=== PATIENT | female | born 1960 | race Caucasian/White ===

== ENCOUNTER 2023-07-18 22:39 | Inpatient (IN) | payer BC, SELFPAY ==
[2023-07-18 22:45] VITALS: BP 125/84; PULSE 114; RESP 18; O2SAT 97
[2023-07-18 22:47] VITALS: BMI 23.5
[2023-07-19 06:00] VITALS: RESP 16
--- NOTE | 2023-07-19 07:57 | W.PM.NPUH&PS ---
Providers/Chief Complaint Admitting Physician: Jonh Duval MD Primary Care Provider: LIANG ARGUELLO DO Chief Complaint: SI HPI NPU History of Present Illness Mey Quinonez is a 62 year old female who presented to an outside hospital with reports of psychosis. They reports she has a history of prior suicide attempts and was found by the police department multiple times walking the road naked. She made some report that there is some conflict in her marriage and that she might need to get a divorce because he does not love her anymore and something about mafia involvement and cutting off her feet. She admitted to auditory and visual hallucinations. She was placed on a 96-hour hold and transferred to [facility] and admitted to the neuropsychiatric unit for definitive treatment of those issues. She presented today quite psychotic and clearly confused. At times she spoke normally at times she spoke in a whimsical, rhythmic prosody that sounded a lot like the Minion's. There was significant baptism element to her speech. At 1 point we talked about whether she was speaking in tongues and she almost seemed happy that the association was made. She spoke about Jose and wanted to know if this keno writer / runner was one of the good ones. She talked about her that she had at the outside hospital and once again identified that there was some concern her feet would be cut off. She referred to the occult and satanic possibilities as she had bleeding to that being included in the affidavits on the 96-hour hold. Most of what she said made no sense but she jumped back and forth talking about a mariam who had left her before and maybe he could love her again but that her did not love her she was emphatic that she never used any drugs and that drugs were not a part of why she presented like this. Laboratory studies from the outside hospital were consistent with drugs not being involved she did have slightly low sodium potassium TSH and free T4 was elevated. There were no other abnormal laboratory findings and she was COVID-negative. She had no recollection of medications she has had in the past but we did get some reports that she had success with lithium and Xanax previously. We discussed working together to get some of her history and possibly consider something like Abilify or Invega which she reported having never heard of before. She reports that she has had previous hospitalizations but could not illuminate. She denied current medication. She denied current treatment. She was in denial of tobacco alcohol marijuana or any illicit drug use now or ever. She acknowledges being on Neurontin and was agreeable that that should eventually kick in. She also endorses being on Synthroid and says she has been consistent with that. We discussed repeating her laboratory studies to see the status of some of her slightly abnormal laboratory findings. Meds NPU Home Medications Medication Instructions Recorded Confirmed Last Taken Type gabapentin 300 mg capsule 300 mg PO TID 07/19/23 07/19/23 Unknown History levothyroxine 88 mcg tablet 88 mcg PO DAILY 07/19/23 07/19/23 Unknown History Allergies Allergy/AdvReac Type Severity Reaction Status Date / Time No Known Allergies Allergy Unverified 07/18/23 23:14 Mental Status Exam MSE Comments: This is a well-nourished well-developed white female looking older than her stated age in hospital scrubs with limited grooming and adequate eye contact. No abnormal movements except for psychomotor agitation. Intermittently cooperative with exam in mild to moderate distress. Speech was increased rate and normal volume and pressured. Mood not described affect energetic. Thought process linear. Thought content: Patient denied suicidal or homicidal ideation, there were no delusions reported but clear persecutory, paranoid and hyperreligious delusions noted, she endorsed auditory and visual hallucinations. Attention and concentration were limited and memory was unreliable but none were formally tested. She is alert and oriented to person and place. Insight, judgment and impulse control are impaired. Vitals/I&O/Wt Last Vital Signs Pulse 114 H 07/18/23 22:45 Resp 16 07/19/23 06:00 BP 125/84 07/18/23 22:45 Pulse Ox 97 07/18/23 22:45 O2 Del Method Room Air 07/18/23 22:47 Weight last 48 hrs Weight 68.13 kg A&P Assessment and plan (1) Psychosis: (2) Camille: Plan This is a 62-year-old white female with previous history of mood dysregulation with lithium use and suicide attempts and previous psychosis who presents floridly psychotic off of medication on a 96-hour hold. 1. Continue current medication. Will consider Invega or Abilify once we have some collateral information about previous use of these medications. 2. Continue every 15 minute checks for safety. 3. Encourage individual, group and milieu therapies. 4. Will recheck lab studies to identify if any problematic lab abnormalities persist. Involuntary Hold Information 96 Hour Hold: 96 Hour Involuntary Admission: No Attestations NPU Medical Necessity Statement*: Inpatient hospitalization is medically necessary and the clinically appropriate intervention at this time. We will monitor/initiate medications and make changes as indicated. She will be in the hospital for over 2 midnights. Likely length of stay 7 to 10 days. Coding Level of Care Code Acute Code for [facility] Fwd Diagnoses Psychosis F29 Camille F30.9
[2023-07-19] MEDS: gabapentin 300 mg Capsule PO ×2 (08:25→15:05)
[2023-07-19] MEDS: levothyroxine 88 mcg Tablet PO (08:25)
[2023-07-19 14:00] VITALS: BP 144/91; PULSE 103; RESP 15; TEMP 37.1; O2SAT 97
[2023-07-19 19:56] VITALS: BP 146/82; PULSE 95; RESP 18; TEMP 36.8; O2SAT 98
[2023-07-19] MEDS: haloperidol inj 5 mg/mL INJ 1 mL IM (21:38)
[2023-07-19] MEDS: diphenhydrAMINE 50 mg/mL SDV 1mL IM (21:39)
[2023-07-19] MEDS: LORazepam 2 mg/mL INJ 1 mL IM (21:39)
--- NOTE | 2023-07-19 21:41 | PC.NURSE ---
PT HAS BEEN NOTED BY STAFF LOUDLY SINGING, JUMPING UP AND DOWN, CURSING AND YELLING AT STAFF AND OTHER PTs. OTHER PTs COMPLAINING OF NOT BEING ABLE TO SLEEP DUE TO HER YELLING. PT EDUCATED THAT IT WAS AFTER 9PM AND OTHER PTs ARE TRYING TO SLEEP, THAT SHE NEEDS TO CALM DOWN, AND QUIT YELLING SO SHE AND THE OTHER PTs CAN GET SOME SLEEP. PT KEPT YELLING AT THE STAFF, WOULD WALK TO THE CSU DOORS AND KNOCK ON THE GLASS AND YELL FOR THEM TO COME LET HER OUT. COME LET ME OUT. I'M BEING HELD PRISONER IN HERE. 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 HELP ME! PT ADVISED SEVERAL TIMES TO COME AWAY FROM THE CSU DOOR THIS SHIFT. SERVICE STATION MANAGER AND SECURITY NOTIFIED THAT PT IS BEING DISRUPTIVE AND THE POSSIBLE NEED TO MEDICATE SAID PT. SECURITY CAME TO UNIT AND ATTEMPTED TO TALK TO THIS PT AND ADVISE HER THAT SHE NEEDED TO QUIET DOWN AND NOT DISTURB OTHER PTs. PT STARTED YELLING AT SECURITY. SERVICE STATION MANAGER, SECURITY X2, UNIT STAFF X3 ENTERED ROOM AND WAS ABLE TO MEDICATE PT WITHOUT DIFFICULTY. MEDICATIONS GIVEN FOLLOWS: ATIVAN 2MGIM, HALDOL 5MG IM GIVEN IN THE LEFT DELTOID, AND BENADRYL 50MG IM GIVEN IN THE RIGHT DELTOID. PT ASKED IF THE LIGHTS COULD STAY ON AND WAS TOLD THEY COULD.
[2023-07-19 23:21] LABS: Basophils % 0.3 %; Eosinophils # 0.2 10^3/uL (0.0-0.8); Eosinophils % 3.6 %; Hematocrit 36.1 % (36-47); Lymphocytes # 1.2 10^3/uL (0.8-4.8); Lymphocytes % 19.2 %; Mean Corpuscular HGB Conc 33.5 g/dL (30-55); Mean Corpuscular Hemoglobin 29.7 pg (27-33); Mean Corpuscular Volume 88.5 fl (85-98); Monocytes # 0.6 10^3/uL (0.2-0.9); Monocytes % 9.2 %; Neutrophils % 67.5 %; Nucleated Red Blood Cells % 0 %; Platelet Count 307 10^3/cmm (157-399); Red Blood Count 4.08 10^6/uL (3.85-5.65); Red Cell Distribution Width 12.6 % (12.1-15.1); White Blood Count 6.08 10^3/uL (3.29-11.43)
[2023-07-19 23:40] LABS: Alanine Aminotransferase 12 U/L (0-33); Alkaline Phosphatase 65 U/L (35-105); Aspartate Amino Transferase 21 U/L (0-32); Blood Urea Nitrogen 8 mg/dL (8-23); Calcium 9.2 mg/dL (8.5-10.5); Carbon Dioxide 23 mmol/L (22-29); Chloride 99 mmol/L (98-107); Globulin 2.8 g/dL (1.3-4.6); Glucose 91 mg/dL (65-115); Osmolality Calculated 282 mOsm/kg (285-295); Sodium 137 mmol/L (136-145); Total Bilirubin 0.5 mg/dL (0.15-1.2); Total Protein 6.8 g/dL (6.6-8.7)
[2023-07-20 06:00] VITALS: RESP 15
--- NOTE | 2023-07-20 06:22 | PC.NURSE ---
Did not obtain patients vitals due to patients erratic behavior and B52. RR obtained.
--- NOTE | 2023-07-20 07:15 | P.NPUPN_ITS ---
Subjective NPU 2 Subjective: Patient presented today reporting that she is doing okay. We discussed lab work from yesterday which raises concern about her potassium level. We discussed the risk benefits and alternatives of obtaining a hospitalist consult to evaluate and treat any laboratory abnormalities still noted. She denies any side effects of the medication. She was reporting reading the Bible and reporting other hyperreligious topics however staff report some improvement in her overall presentation. Mental Status Exam 2 MSE Comments: This is a well-nourished well-developed white female looking older than her stated age in hospital scrubs with limited grooming and adequate eye contact. No abnormal movements except for psychomotor agitation. More cooperative with exam in mild distress. Speech was increased rate and normal volume and less pressured. Mood described as okay, affect less energetic. Thought process linear. Thought content: Patient denied suicidal or homicidal ideation, there were no delusions reported but clear persecutory, paranoid and hyperreligious delusions noted, she endorsed auditory and visual hallucinations. Attention and concentration were limited and memory was unreliable but none were formally tested. She is alert and oriented to person and place. Insight, judgment and impulse control are impaired. Vitals/I&O/Wt Last Vital Signs Temp 98.2 F 07/19/23 19:56 Pulse 95 07/19/23 19:56 Resp 15 07/20/23 06:00 BP 146/82 07/19/23 19:56 Pulse Ox 98 07/19/23 19:56 O2 Del Method Room Air 07/19/23 19:56 Weight last 48 hrs Weight 68.13 kg Data NPU 07/19/23 22:46 07/19/23 22:46 A&P Assessment and plan (1) Psychosis: (2) Camille: Plan This is a 62-year-old white female with previous history of mood dysregulation with lithium use and suicide attempts and previous psychosis who presents floridly psychotic off of medication on a 96-hour hold. 1. Continue current medication. Initiate Invega 6mg po q daily. 2. Continue every 15 minute checks for safety. 3. Encourage individual, group and milieu therapies. 4. Will recheck lab studies to identify if any problematic lab abnormalities persist. Potassium remains low at 3.0, obtain hospitalist consult and follow recommendations as indicated Involuntary Hold Information 2 96 Hour Hold: 96 Hour Involuntary Admission: No Attestations NPU 2 Medical Necessity Statement*: Inpatient hospitalization is medically necessary and the clinically appropriate intervention at this time. We will monitor/initiate medications and make changes as indicated. Likely length of stay 6-9 days. Coding Level of Care Code Acute Code for [facility] Fwd Diagnoses Psychosis F29 Camille F30.9
[2023-07-20] MEDS: levothyroxine 88 mcg Tablet PO (08:37)
--- NOTE | 2023-07-20 12:29 | P.CONIM_ITS ---
Providers/Reason For Consult 2 Consulting Physician/Specialty*: Dr. Menon/internal medicine Reason for Consult*: Hypokalemia Attending Physician: Jonh Duval MD Primary Care Provider: LIANG ARGUELLO DO History of Present Illness History of Present Illness Mey Quinonez is a 62 year old female admitted to Neuropsych Unit with past medical history of hypothyroidism for martinez. Patient was found to have low potassium levels on BMP which was confirmed again today morning with potassium down to 3 hence internal medicine was consulted. As per the nurse patient has not had any episodes of vomiting or diarrhea. Patient also confirms that she has not had any fluids for diarrhea. Medical reconciliation done. Patient only on oral gabapentin 303 times a day and oral levothyroxine. Patient herself is a poor historian and during interview is only concentrating on talking about god and how she would want to go back to [employer] to start playing again. Review of Systems 2 General: Reports: ROS unobtainable due to mental status Medications/Allergies Home Medications Medication Instructions Recorded Confirmed Last Taken Type gabapentin 300 mg capsule 300 mg PO TID 07/19/23 07/19/23 Unknown History levothyroxine 88 mcg tablet 88 mcg PO DAILY 07/19/23 07/19/23 Unknown History Allergies Allergy/AdvReac Type Severity Reaction Status Date / Time No Known Allergies Allergy Unverified 07/18/23 23:14 Current Medications Generic Name Dose Route Start Last Admin Trade Name Freq PRN Reason Stop Dose Admin Diphenhydramine HCl 50 mg 07/18/23 22:44 07/19/23 21:39 Diphenhydramine 50 Mg/Ml Sdv 1ml IM 50 mg Q4H PRN Administration Severe Aggression Gabapentin 300 mg 07/19/23 09:00 07/20/23 08:39 Gabapentin 300 Mg Capsule PO Not Given TID ELEAZAR Haloperidol Lactate 5 mg 07/18/23 22:44 07/19/23 21:38 Haloperidol Inj 5 Mg/Ml Inj 1 Ml IM 5 mg Q4H PRN Administration Severe Aggression Levothyroxine Sodium 88 mcg 07/19/23 09:00 07/20/23 08:37 Levothyroxine 88 Mcg Tablet PO 88 mcg DAILY ELEAZAR Administration Lorazepam 2 mg 07/19/23 06:29 07/19/23 21:39 Lorazepam 2 Mg/Ml Inj 1 Ml IM 2 mg Q4H PRN Administration Severe Aggression PFSH Acute 2 PFSH: Medical History (Updated 07/20/23 @ 14:02 by Catalino Menon MD) Hypothyroidism Vitals/I&O/Wt Last Vital Signs Temp 98.2 F 07/19/23 19:56 Pulse 95 07/19/23 19:56 Resp 15 07/20/23 06:00 BP 146/82 07/19/23 19:56 Pulse Ox 98 07/19/23 19:56 O2 Del Method Room Air 07/19/23 19:56 Weight last 48 hrs Weight 68.13 kg Physical Exam 2 Narrative: General: No acute distress, AO x3 HEENT: PERRLA, pupils bilaterally equal and reactive Chest: Normal vesicular breath sounds, no added sounds, equal good air entry bilaterally CVS: S1-S2 regular, no murmurs, no tachycardia, no gallops, no rubs Abdomen: Soft, nontender, no organomegaly, bowel sounds present Neuro: No focal deficits, no facial deformity, AO x3, power 5/5 in all limbs Data 07/19/23 22:46 07/19/23 22:46 A&P Assessment and plan (1) Hypothyroidism: Past history. Check TSH, free T3 and T4. Continue home dose of levothyroxine. Will redose as per results. (2) Martinez: As per primary team. (3) Psychosis: (4) Hypokalemia: Denies any diarrhea or vomiting. Denies any muscle cramps. Replete potassium with 80 mEq oral. Check magnesium. Repeat CMP in AM. Plan Check A1c, lipid panel, thyroid profile, vitamin B12 and iron panel. Thank you for involving us in care of Ms. Quinonez. Please call back with any questions. Care discussed in detail with patient's RN. Consult Attestations 2 Medical Necessity Statement: As per primary team from [facility] Diagnoses Hypothyroidism E03.9 Martinez F30.9 Psychosis F29 Hypokalemia E87.6
[2023-07-20] MEDS: paliperidone ER 6 mg Tablet PO (12:39)
[2023-07-20 13:20] LABS: Iron 35 ug/dL (37-145); Percent Saturation 15.3 % (20-50); Thyroid Stimulating Hormone 0.15 uIU/mL (0.27-4.20); Total Iron Binding Capacity 228 mcg/dl; Unsaturated Iron Binding 193 ug/dL (112-347); Vitamin B12 483 pg/mL (232-1245)
[2023-07-20] MEDS: potassium chloride ER 20 mEq Tablet 80 MEQ PO (13:48)
[2023-07-20 14:00] VITALS: BP 135/89; PULSE 111; RESP 13; TEMP 36.8; O2SAT 94
[2023-07-20] MEDS: gabapentin 300 mg Capsule PO (14:26)
[2023-07-20 14:43] LABS: Free T4 Free Thyroxine 1.65 ng/dL (0.82-1.77); T3 Free 2.4 PG/ML (2.0-4.4)
[2023-07-20] MEDS: OLANZapine 5 mg ODT PO (19:24)
[2023-07-20] MEDS: acetaminophen 325 mg Tablet 650 MG PO (19:24)
--- NOTE | 2023-07-20 19:27 | PC.NURSE ---
Pt refused scheduled Gabapentin claiming it was witchcraft and she wanted to stay away from it.
[2023-07-20 19:50] VITALS: BP 108/73; PULSE 102; RESP 20; O2SAT 98
[2023-07-21] MEDS: hyDROXYzine 25 mg Capsule 50 MG PO ×2 (05:36→20:00)
[2023-07-21] MEDS: acetaminophen 325 mg Tablet 650 MG PO (05:42)
--- NOTE | 2023-07-21 07:55 | PC.NURSE ---
Patient sobbing loudly this morning. When this nurse asked her what was wrong she asked, what's wrong?! What's wrong?! Am I doing something wrong? This RN assured her she wasn't doing anything wrong and that I was just concerned because she was crying. She made several garbled statements that included something about her parents' baby having problems, God being the only person that could take care of her, and that she thought she might need 911. She then asked for some secure. When asked what secure was, she threw her hands up in the air and made several incomprehensible statements and noises, appearing irritated. She then said something about toothpaste being on her shirt and it being better than [place] grease. This RN reassured her we would do everything we could to help her and to let us know if we could help her. She denied hi and avh. When asked if she wanted to hurt herself she replied, no! I want to help myself!
[2023-07-21] MEDS: paliperidone ER 6 mg Tablet PO (08:26)
[2023-07-21] MEDS: ibuprofen 600 mg Tablet PO ×2 (08:26→18:35)
[2023-07-21] MEDS: gabapentin 300 mg Capsule PO (08:26)
[2023-07-21] MEDS: levothyroxine 88 mcg Tablet PO (08:26)
[2023-07-21 09:42] LABS: Chol HDL Ratio 3.42 mg/dL (0.0-4.40); Cholesterol 188 mg/dL (0-200); HDL Cholesterol 55 mg/dL (60-100); LDL Cholesterol Calculated 120 mg/dL (50-129); Triglycerides 64 mg/dL (0-150); VLDL Cholestrol Calculation 13 mg/dL (0-30)
[2023-07-21 09:43] LABS: Alanine Aminotransferase 16 U/L (0-33); Alkaline Phosphatase 62 U/L (35-105); Anion Gap 12.5 (5-19); Aspartate Amino Transferase 22 U/L (0-32); Blood Urea Nitrogen 9 mg/dL (8-23); Calcium 9.2 mg/dL (8.5-10.5); Carbon Dioxide 28 mmol/L (22-29); Chloride 102 mmol/L (98-107); Globulin 2.8 g/dL (1.3-4.6); Glomerular Filtration Rate 84.8 mL/min (90-130); Glucose 144 mg/dL (65-115); Osmolality Calculated 289 mOsm/kg (285-295); Potassium 3.5 mmol/L (3.5-5.1); Sodium 139 mmol/L (136-145); Total Bilirubin 0.5 mg/dL (0.15-1.2); Total Protein 6.8 g/dL (6.6-8.7)
[2023-07-21 10:15] LABS: Folate Level > 20.0 ng/mL (4.8-37.3)
--- NOTE | 2023-07-21 12:51 | PM.MISC ---
Miscellaneous Note Purpose of Documentation: Follow-up on lab work Note: Labs reviewed. Potassium seems to have improved to 3.5. Magnesium seems to be running normal off to today. Appreciate B12, TSH, free T3 and free T4, folate levels. Lipid panel appreciated. Will replete 40 mg of oral potassium more. Medicine will sign off. Please call back with any questions.
[2023-07-21] MEDS: potassium chloride ER 20 mEq Tablet 40 MEQ PO (13:18)
--- NOTE | 2023-07-21 13:22 | PC.NURSE ---
Patient making noises as if she were crying, but no tears present. When this nurse asked her what she was upset about she immediately stopped crying and made some strange noises and said a few unintelligible words. This nurse asked her to repeat herself, as I didn't understand what she said. She replied, huh? what? huh? in a mocking tone and rolled her eyes. She then said to go ask someone who knows what's wrong. This RN asked her if she would like to take the potassium tablets the doctor had prescribed her. In response to this, she rolled up her sleeve, showed this RN her tattoo of a dove, and rambled off something unintelligible about the Bible and Vicente. She did take the potassium willingly, but then later came to the nurses' station and asked if anyone was going to take her to the hospital for back pain and then walked away.
[2023-07-21 13:34] LABS: Estmated Average Glucose 94; Hemoglobin A1C 4.9 % (4.0-6.0)
--- NOTE | 2023-07-21 13:46 | P.NPUPN_ITS ---
Subjective NPU 2 Subjective: Patient presented today reporting that she is feeling better but continued to be quite religiously preoccupied per staff reports and direct observation. She was either lying down or reading the Bible. All questions were answered with some roman catholic spin. She continued to report things based on whether she was thinking the other participant was worthy from a right to standpoint to be apart of the roman catholic dialogue. She also was often heard singing hymns in her room. She denied any side effects to the medication. Mental Status Exam 2 MSE Comments: This is a well-nourished well-developed white female looking older than her stated age in hospital scrubs with limited grooming and adequate eye contact. No abnormal movements except for psychomotor agitation. More cooperative with exam in mild distress. Speech was increased rate and normal volume and less pressured. Mood described as okay, affect less energetic. Thought process linear. Thought content: Patient denied suicidal or homicidal ideation, there were no delusions reported but clear persecutory, paranoid and hyperreligious delusions noted, she endorsed auditory and visual hallucinations. Attention and concentration were limited and memory was unreliable but none were formally tested. She is alert and oriented to person and place. Insight, judgment and impulse control are impaired. Vitals/I&O/Wt Last Vital Signs Temp 98.2 F 07/20/23 14:00 Pulse 102 H 07/20/23 19:50 Resp 20 H 07/20/23 19:50 BP 108/73 07/20/23 19:50 Pulse Ox 98 07/20/23 19:50 O2 Del Method Room Air 07/20/23 19:50 Data NPU 07/19/23 22:46 07/21/23 08:44 A&P Assessment and plan (1) Psychosis: (2) Camille: Plan This is a 62-year-old white female with previous history of mood dysregulation with lithium use and suicide attempts and previous psychosis who presents floridly psychotic off of medication on a 96-hour hold. 1. Continue current medication. Initiate Invega 6mg po q daily. 2. Continue every 15 minute checks for safety. 3. Encourage individual, group and milieu therapies. 4. Will recheck lab studies to identify if any problematic lab abnormalities persist. Potassium remained low at 3.0 at recheck. Appreciate hospitalist consult and following recommendations. 5. We will file request for 21-day hold given limited improvement and continued psychosis. Involuntary Hold Information 2 96 Hour Hold: 96 Hour Involuntary Admission: No Attestations NPU 2 Medical Necessity Statement*: Inpatient hospitalization is medically necessary and the clinically appropriate intervention at this time. We will monitor/initiate medications and make changes as indicated. Likely length of stay 6-9 days. Coding Level of Care Code Acute Code for [facility] Fwd Diagnoses Psychosis F29 Camille F30.9
--- NOTE | 2023-07-21 13:58 | PC.NURSE ---
Patient approached nurses' station and asked for a 7-Up. This RN told her we didn't have any sodas, but that we had tea, lemonade, and water. She then became irritated and asked, what world is this really? Because in the real world you can drink what you want and eat what you want. This RN told her we'd gladly get her something to drink, but that this floor wasn't stocked with sodas. She became angry, repeated again how this wasn't the real world, and walked away.
[2023-07-21 14:00] VITALS: BP 128/84; PULSE 90; RESP 13; O2SAT 97
--- NOTE | 2023-07-21 15:36 | PC.NURSE ---
Patient refused 1500 gabapentin dose. She stated that it was fake medicine and it would not cure the spell that had been put on her. Patient said she would just leave it to Vicente. She also appeared irritated that this nurse did not have any medications to give her as needed for her back pain other than tylenol or ibuprofen, refused both, and then walked away irritated. Patient could also not elaborate on what she would actually like for pain.
[2023-07-21] MEDS: trazodone 50 mg Tablet PO (20:00)
[2023-07-21 20:38] VITALS: BP 153/75; PULSE 93; RESP 16; TEMP 36.4; O2SAT 97
--- NOTE | 2023-07-21 21:15 | PC.NURSE ---
Pt came to nurses station asking about if the nola was coming tonight to tuck her into bed. Pt was educated that the nola comes only during the day, Pt was understanding. Pt requested something for sleep/anxiety. Pt was given trazodone and vistaril per orders. Pt also refused scheduled Gabapentin. Pt then went to rest in bed. No distress noted.
[2023-07-22] MEDS: ibuprofen 600 mg Tablet PO ×2 (03:31→20:17)
[2023-07-22 06:00] VITALS: BP 135/95; PULSE 83; RESP 18; TEMP 36.9; O2SAT 97
[2023-07-22] MEDS: magnesium hydroxide 30 mL UDC PO (06:05)
[2023-07-22] MEDS: levothyroxine 88 mcg Tablet PO (06:54)
--- NOTE | 2023-07-22 07:56 | PC.NURSE ---
Resting in bed this morning. She denied avh, saying, I've never wanted to hurt myself. When asked about hallucinations she answered with, ummm...I need to call my and ask for my cdl bulk driver's license, social security card, and certificate. She also said she needed to see her cotton tipper,inspector automatic typewriter, road packer operator, and helper today. Denied any back pain this morning.
--- NOTE | 2023-07-22 08:28 | W.PM.NPUPNS ---
Subjective NPU Subjective: Patient presented today reporting that this creative services writer is not holy enough to be her doctor. We discussed Carli coming tomorrow that he would work with the try to get her moving towards discharge. She denies any side effects of the medications and continues to spend her time reading the Bible or citing prayer needs. Mental Status Exam MSE Comments: This is a well-nourished well-developed white female looking older than her stated age in hospital scrubs with limited grooming and adequate eye contact. No abnormal movements except for psychomotor agitation. More cooperative with exam in mild distress. Speech was increased rate and normal volume and less pressured. Mood described as okay, affect less energetic. Thought process linear. Thought content: Patient denied suicidal or homicidal ideation, there were no delusions reported but clear persecutory, paranoid and hyperreligious delusions noted, she endorsed auditory and visual hallucinations. Attention and concentration were limited and memory was unreliable but none were formally tested. She is alert and oriented to person and place. Insight, judgment and impulse control are impaired. Vitals/I&O/Wt Last Vital Signs Temp 98.4 F 07/22/23 06:00 Pulse 83 07/22/23 06:00 Resp 18 07/22/23 06:00 BP 135/95 07/22/23 06:00 Pulse Ox 97 07/22/23 06:00 O2 Del Method Room Air 07/22/23 06:00 Weight last 48 hrs Weight 66.451 kg Data NPU 07/19/23 22:46 07/21/23 08:44 A&P Assessment and plan (1) Psychosis: (2) Camille: Plan This is a 62-year-old white female with previous history of mood dysregulation with lithium use and suicide attempts and previous psychosis who presents floridly psychotic off of medication on a 96-hour hold. 1. Continue current medication. Initiated Invega 6mg po q daily. 2. Continue every 15 minute checks for safety. 3. Encourage individual, group and milieu therapies. 4. Will recheck lab studies to identify if any problematic lab abnormalities persist. Potassium remained low at 3.0 at recheck. Appreciate hospitalist consult and following recommendations. 5. We will file request for 21-day hold given limited improvement and continued psychosis. Involuntary Hold Information 96 Hour Hold: 96 Hour Involuntary Admission: No Attestations NPU Medical Necessity Statement*: Inpatient hospitalization is medically necessary and the clinically appropriate intervention at this time. We will monitor/initiate medications and make changes as indicated. Likely length of stay 6-9 days. Coding Level of Care Code Acute Code for [facility] Fwd Diagnoses Psychosis F29 Camille F30.9
--- NOTE | 2023-07-22 08:48 | PC.NURSE ---
Patient refused medications this morning. She stated she no longer takes the gabapentin and got very irritated by the invega. She said, I don't need that. I'm not psychotic. I'm fine, and rolled her eyes.
--- NOTE | 2023-07-22 09:53 | PC.NURSE ---
Patient requesting staff call and talk to her pastors Fabian and Demar. When asked why she would like us to call she became very agitated and asked for their number. Staff told her we did not know her pastors and she rolled her eyes and said, it's the [facility] in [place]. This RN looked up the number to the [facility] and gave it to her. She went to the phone, did not talk to anyone, and came back to this nurse stating that the pastors requested staff call them. When asked what we were needing to ask/tell them she stated, ryan davis. Staff informed patient we would need more information and that no one was probably at the conf[facility] given it is Tuesday. Patient replied, whatever. I'm done trying with you, and stormed off to her room.
[2023-07-22] MEDS: calcium carbonate 500 mg Chew Tablet 1000 MG PO (12:10)
[2023-07-22 14:00] VITALS: BP 132/85; PULSE 94; RESP 20; TEMP 36.6; O2SAT 99
[2023-07-22] MEDS: hyDROXYzine 25 mg Capsule 50 MG PO (20:17)
[2023-07-22 20:32] VITALS: BP 157/100; PULSE 98; RESP 18; TEMP 36.6; O2SAT 96
[2023-07-23 06:00] VITALS: BP 133/87; PULSE 93; RESP 18; TEMP 36.8; O2SAT 97
[2023-07-23] MEDS: paliperidone ER 6 mg Tablet PO (08:46)
[2023-07-23] MEDS: levothyroxine 88 mcg Tablet PO (08:46)
[2023-07-23 14:00] VITALS: BP 130/81; PULSE 97; RESP 18; TEMP 36.6; O2SAT 98
--- NOTE | 2023-07-23 16:47 | W.PM.NPUPNS ---
Subjective NPU Subjective: 62-year-old female presented with psychosis and possible manic symptoms currently on Invega. Patient continued to appear excessively religiously preoccupied. She states that her did not want her home and stated that she had been to him for 30 years but still felt that there was a worship war going on between the 2 of them. She had stated that she had felt as if she was being tested and stated that she was in the process of being vetted to become a Saint. Patient endorsed feeling better but she continued to appear excessively preoccupied with protestant on the milieu. She had isolated herself from her peers. She had reported no sleep continuity disruption. Mental Status Exam MSE Comments: This is a well-nourished, well-developed, white female looking older than her stated age in hospital scrubs with limited grooming and adequate eye contact. No abnormal involuntary motor movements except for mild psychomotor retardation today. She was superficially cooperative with exam in mild distress. Her speech was normal in rate and normal volume today. Mood described as allright. Her affect was odd. Thought process was linear. Thought content: Patient denied suicidal or homicidal ideation, there were no delusions reported but clear persecutory, paranoid and hyperreligious delusions were noted, she denied auditory or visual hallucinations. Attention and concentration were limited and memory was unreliable but none were formally tested. She is alert and oriented to person and place. Insight, judgment and impulse control are impaired. Vitals/I&O/Wt Last Vital Signs Temp 97.8 F 07/23/23 14:00 Pulse 97 07/23/23 14:00 Resp 18 07/23/23 14:00 BP 130/81 07/23/23 14:00 Pulse Ox 98 07/23/23 14:00 O2 Del Method Room Air 07/23/23 14:00 Data NPU 07/19/23 22:46 07/21/23 08:44 A&P Assessment and plan (1) Psychosis: (2) Camille: Plan This is a 62-year-old white female with previous history of mood dysregulation with lithium use and suicide attempts and previous psychosis who presents floridly psychotic off of medication on a 96-hour hold. 1. Continue current medication. Continue invega 6mg daily with increase if necessary. 2. Continue every 15 minute checks for safety. 3. Encourage individual, group and milieu therapies. 4. Will recheck lab studies to identify if any problematic lab abnormalities persist. 5. We will file request for 21-day hold given limited improvement and continued psychosis. Involuntary Hold Information 96 Hour Hold: 96 Hour Involuntary Admission: No Attestations NPU Medical Necessity Statement*: Inpatient hospitalization is medically necessary and the clinically appropriate intervention at this time. We will monitor/initiate medications and make changes as indicated. Likely length of stay 6-9 days. Coding Level of Care Code Acute Code for [facility] Fw Diagnoses Psychosis F29 Camille F30.9
[2023-07-23] MEDS: hyDROXYzine 25 mg Capsule 50 MG PO (18:25)
[2023-07-23] MEDS: ibuprofen 600 mg Tablet PO (18:26)
[2023-07-23 20:11] VITALS: BP 131/86; PULSE 108; RESP 18; TEMP 36.4; O2SAT 98
[2023-07-23] MEDS: trazodone 50 mg Tablet PO (20:17)
--- NOTE | 2023-07-23 23:14 | PC.NURSE ---
pt came up to nurses station stating why is everyone laughing up here and why are you up here and pointed to another patient. Staff informed her that no one was laughing at her and she stated well i am in my room throwing up and you all are up here laughing. This nurse proceeded to ask pt is she wanted anything for nausea and she replied with no i want good care and stormed back to her room.
[2023-07-24 06:00] VITALS: BP 131/84; PULSE 114; RESP 15; O2SAT 97
[2023-07-24] MEDS: paliperidone ER 6 mg Tablet PO (07:53)
[2023-07-24] MEDS: levothyroxine 88 mcg Tablet PO (07:54)
[2023-07-24] MEDS: acetaminophen 325 mg Tablet 650 MG PO ×2 (08:03→16:28)
--- NOTE | 2023-07-24 10:19 | PC.NURSE ---
pt left facility on foot with his belongings.
--- NOTE | 2023-07-24 12:34 | W.PM.NPUPNS ---
Subjective NPU Subjective: 62-year-old female presented with psychosis and possible manic symptoms currently on Invega. Patient continued to isolate herself on the milieu. 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 She continued to be religiously preoccupied asking whether the commercial underwriter of this note believes in God and stating that God was on her side. She had stated that she had come here into the hospital because of a disagreement with her but did not wish to elaborate any further regarding this matter. She remained quiet and minimally interactive with her peers. Mental Status Exam MSE Comments: This is a well-nourished, well-developed, white female looking older than her stated age in hospital scrubs with limited grooming and adequate eye contact. No abnormal involuntary motor movements except for mild psychomotor retardation today. She was superficially cooperative with exam in mild distress. Her speech was normal in rate and normal volume today. Mood described as okay. Her affect was odd and subdued. Thought process was linear. Thought content: Patient denied suicidal or homicidal ideation, there were no delusions reported but clear persecutory, paranoid and hyperreligious delusions were noted, she denied auditory or visual hallucinations. Attention and concentration were limited and memory was unreliable but none were formally tested. She is alert and oriented to person and place but not date or day of week. Insight, judgment and impulse control are all impaired. Vitals/I&O/Wt Last Vital Signs Temp 97.5 F L 07/23/23 20:11 Pulse 114 H 07/24/23 06:00 Resp 15 07/24/23 06:00 BP 131/84 07/24/23 06:00 Pulse Ox 97 07/24/23 06:00 O2 Del Method Room Air 07/24/23 06:00 Weight last 48 hrs Weight 66.451 kg Data NPU 07/19/23 22:46 07/21/23 08:44 A&P Assessment and plan (1) Psychosis: (2) Camille: Plan This is a 62-year-old white female with previous history of mood dysregulation with lithium use and suicide attempts and previous psychosis who presents floridly psychotic off of medication on a 96-hour hold. 1. Continue synthroid, and gabapentin as prescribed. Continue invega 6mg at night. 2. Continue every 15 minute checks for safety. 3. Encourage individual, group and milieu therapies. 4. Will recheck lab studies to identify if any problematic lab abnormalities persist. 5. We will file request for 21-day hold given limited improvement and continued psychosis. Involuntary Hold Information 96 Hour Hold: 96 Hour Involuntary Admission: No Attestations NPU Medical Necessity Statement*: Inpatient hospitalization is medically necessary and the clinically appropriate intervention at this time. We will monitor/initiate medications and make changes as indicated. Likely length of stay 6-9 days. Coding Level of Care Code Acute Code for [facility] Fwd Diagnoses Psychosis F29 Camille F30.9
[2023-07-24] MEDS: efferdent effervescent 1 EACH DENTAL (13:42)
[2023-07-24 14:00] VITALS: BP 105/68; PULSE 86; RESP 14; TEMP 36.5; O2SAT 99
[2023-07-24] MEDS: gabapentin 300 mg Capsule PO (19:12)
[2023-07-24] MEDS: trazodone 50 mg Tablet PO (19:12)
[2023-07-24 19:27] VITALS: BP 103/62; PULSE 104; RESP 17; TEMP 36.7; O2SAT 98
[2023-07-25 06:00] VITALS: BP 123/78; PULSE 120; RESP 18; O2SAT 94
--- NOTE | 2023-07-25 07:26 | PC.NURSE ---
refused scheduled Gabapentin, said she spoke to Dr. Boyce and they discussed she would no longer be taking it
[2023-07-25] MEDS: levothyroxine 88 mcg Tablet PO (07:47)
[2023-07-25] MEDS: paliperidone ER 6 mg Tablet PO (07:47)
[2023-07-25] MEDS: ibuprofen 600 mg Tablet PO (07:48)
[2023-07-25] MEDS: efferdent effervescent 1 EACH DENTAL (11:56)
[2023-07-25 14:00] VITALS: BP 128/84; PULSE 101; RESP 16; TEMP 36.6; O2SAT 98
--- NOTE | 2023-07-25 14:15 | PC.NURSE ---
refused scheduled Gabapentin @ 1500
--- NOTE | 2023-07-25 16:31 | P.NPUPN_ITS ---
Subjective NPU 2 Subjective: 62-year-old female presented with psycho sis and possible manic symptoms currently on Invega. The patient continued to report that she was upset that her had stated to her that he did not love her. She continued to isolate herself on the milieu. She is stated that she would like to return home. She had stated that she was not harming herself or anyone else. She had maintained that she was continuing to struggle with anabaptist and stated that she did not feel that she should be here in the hospital based upon her beliefs. Mental Status Exam 2 MSE Comments: This is a well-nourished well-developed white female looking older than her stated age in hospital scrubs with limited grooming and adequate eye contact. No abnormal movements except for mild psychomotor slowing. She was cooperative with exam in mild distress. Speech was normal in rate and normal volume. Mood described as allright. Her affect was flat. Thought process was linear. Thought content: Patient denied suicidal or homicidal ideation, there was some hyperreligiousity. she endorsed no auditory and visual hallucinations. Attention and concentration were limited and memory was unreliable but none were formally tested. She is alert and oriented to person and place. Insight, judgment and impulse control are impaired. Vitals/I&O/Wt Last Vital Signs Temp 98 F 07/25/23 14:00 Pulse 101 H 07/25/23 14:00 Resp 16 07/25/23 14:00 BP 128/84 07/25/23 14:00 Pulse Ox 98 07/25/23 14:00 O2 Del Method Room Air 07/25/23 14:00 Weight last 48 hrs Weight 66.451 kg Data NPU 07/19/23 22:46 07/21/23 08:44 A&P Assessment and plan (1) Psychosis: (2) Camille: Plan This is a 62-year-old white female with previous history of mood dysregulation with lithium use and suicide attempts and previous psychosis who presents floridly psychotic off of medication on a 96-hour hold. 1. Continue current medication. 2. Continue every 15 minute checks for safety. 3. Encourage individual, group and milieu therapies. 4. Continue Invega with increase to 9mg daily. 5. We will file request for 21-day hold given limited improvement and continued psychosis. Involuntary Hold Information 2 96 Hour Hold: 96 Hour Involuntary Admission: No Attestations NPU 2 Medical Necessity Statement*: Inpatient hospitalization is medically necessary and the clinically appropriate intervention at this time. We will monitor/initiate medications and make changes as indicated. Likely length of stay 3-4days. Coding Level of Care Code Acute Code for [facility] Fwd Diagnoses Psychosis F29 Camille F30.9
[2023-07-25 19:47] VITALS: BP 143/91; PULSE 102; RESP 20; TEMP 36.6; O2SAT 94
[2023-07-26] MEDS: ibuprofen 600 mg Tablet PO (01:15)
[2023-07-26 06:00] VITALS: BP 124/81; PULSE 78; RESP 14; TEMP 36.7; O2SAT 98
[2023-07-26] MEDS: levothyroxine 88 mcg Tablet PO (06:12)
[2023-07-26] MEDS: paliperidone ER 9 mg Tablet PO (07:51)
--- NOTE | 2023-07-26 08:02 | PC.NURSE ---
refused scheduled Gabapentin did c/o some mild constipation. stated her last BM was a few days ago. stated she wished to go home today
[2023-07-26] MEDS: magnesium hydroxide 30 mL UDC PO (09:40)
--- NOTE | 2023-07-26 09:41 | PC.NURSE ---
milk of magnesia 30 ml given po per pt c/o constipation
--- NOTE | 2023-07-26 13:23 | W.PM.NPUDCS ---
Diagnoses at Discharge Discharge Diagnosis (1) Psychosis: Status: Acute (2) Camille: Status: Acute Reason for Visit Reason for Visit: SI Brief History: History of Present Illness Mey Quinonez is a 62 year old female who presented to an outside hospital with reports of psychosis. They reports she has a history of prior suicide attempts and was found by the police department multiple times walking the road naked. She made some report that there is some conflict in her marriage and that she might need to get a divorce because he does not love her anymore and something about mafia involvement and cutting off her feet. She admitted to auditory and visual hallucinations. She was placed on a 96-hour hold and transferred to [facility] and admitted to the neuropsychiatric unit for definitive treatment of those issues. She presented today quite psychotic and clearly confused. At times she spoke normally at times she spoke in a whimsical, rhythmic prosody that sounded a lot like the Minion's. There was significant sabianist element to her speech. At 1 point we talked about whether she was speaking in tongues and she almost seemed happy that the association was made. She spoke about Jose and wanted to know if this aligner typewriter was one of the good ones. She talked about her that she had at the outside hospital and once again identified that there was some concern her feet would be cut off. She referred to the occult and satanic possibilities as she had bleeding to that being included in the affidavits on the 96-hour hold. Most of what she said made no sense but she jumped back and forth talking about a mariam who had left her before and maybe he could love her again but that her did not love her she was emphatic that she never used any drugs and that drugs were not a part of why she presented like this. Laboratory studies from the outside hospital were consistent with drugs not being involved she did have slightly low sodium potassium TSH and free T4 was elevated. There were no other abnormal laboratory findings and she was COVID-negative. She had no recollection of medications she has had in the past but we did get some reports that she had success with lithium and Xanax previously. We discussed working together to get some of her history and possibly consider something like Abilify or Invega which she reported having never heard of before. She reports that she has had previous hospitalizations but could not illuminate. She denied current medication. She denied current treatment. She was in denial of tobacco alcohol marijuana or any illicit drug use now or ever. She acknowledges being on Neurontin and was agreeable that that should eventually kick in. She also endorses being on Synthroid and says she has been consistent with that. We discussed repeating her laboratory studies to see the status of some of her slightly abnormal laboratory findings. Meds NPU Home Medications Medication Instructions Recorded Confirmed Last Taken Type gabapentin 300 mg capsule 300 mg PO TID 07/19/23 07/19/23 Unknown History levothyroxine 88 m cg tablet 88 mcg PO DAILY 07/19/23 07/19/23 Unknown History Allergies Allergy/AdvReac Type Severity Reaction Status Date / Time No Known Allergies Allergy Unverified 07/18/23 23:14 Hospital Course Hospital Course During the hospitalization, the patient had routine laboratory studies which were within normal limits except for a few outliers.? Additionally, there was a general medical evaluation which was also within normal limits and revealed no new acute processes.? At the time of discharge, lethality was denied and psychosis was resolving.? Mood and anxiety were well managed.? The patient endorsed a plan to avoid all drugs of abuse and follow up with the aftercare recommendations of the treatment team.? The patient was evaluated and deemed to be absent credible lethality and had achieved the maximum benefit from an inpatient hospitalization, and so was discharged.? Paliperidone was initiated and titrated up to a dose of 9mg daily with noted improvement in paranoia. Patient reported comfort with continuing this medication on discharge. Involuntary Hold Information 96 Hour Hold: 96 Hour Involuntary Admission: No Mental Status Exam MSE Comments: This is a well-nourished well-developed white female looking older than her stated age in hospital scrubs with limited grooming and adequate eye contact. No abnormal movements except for mild psychomotor slowing. She was cooperative with exam in mild distress. Speech was normal in rate and normal volume. Mood described as allright. Her affect was flat. Thought process was linear. Thought content: Patient denied suicidal or homicidal ideation. She endorsed no auditory and visual hallucinations. Attention and concentration were improved on discharge. She is alert and oriented to person, place time and situation. Insight, judgment and impulse control are fair. Discharge Data Studies Completed and Pending: Laboratory Results WBC 6.08 10^3/uL (3.2 9-11.43) 07/19/23 22:46 RBC 4.08 10^6/uL (3.8 5-5.65) 07/19/23 22:46 Hgb 12.10 g/dL (11.27 -16.99) 07/19/23 22:46 Hct 36.1 % (36-47) 07/19/23 22:46 MCV 88.5 fl (85-98) 07/19/23 22:46 MCH 29.7 pg (27-33) 07/19/23 22:46 MCHC 33.5 g/dL (30-55) 07/19/23 22:46 RDW 12.6 % (12.1-15.1 ) 07/19/23 22:46 Plt Count 307 10^3/cmm (157 -399) 07/19/23 22:46 MPV 10.0 fL (7.4-10.4 ) 07/19/23 22:46 Neut % (Auto) 67.5 % 07/19/23 22:46 Lymph % (Auto) 19.2 % 07/19/23 22:46 [place] % (Auto) 9.2 % 07/19/23 22:46 Eos % (Auto) 3.6 % 07/19/23 22:46 Baso % (Auto) 0.3 % 07/19/23 22:46 Neut # (Auto) 4.10 10^3/uL (1.8 -7.7) 07/19/23 22:46 Lymph # (Auto) 1.2 10^3/uL (0.8- 4.8) 07/19/23 22:46 [place] # (Auto) 0.6 10^3/uL (0.2- 0.9) 07/19/23 22:46 Eos # (Auto) 0.2 10^3/uL (0.0- 0.8) 07/19/23 22:46 Baso # (Auto) 0.0 10^3/uL (0.0- 0.1) 07/19/23 22:46 Nucleated RBC % (a uto) 0 % 07/19/23 22:46 Nucleated RBCs # 0.0 /100WBC 07/19/23 22:46 Sodium 139 mmol/L (136-1 45) 07/21/23 08:44 Potassium 3.5 mmol/L (3.5-5 .1) 07/21/23 08:44 Chloride 102 mmol/L (98-10 7) 07/21/23 08:44 Carbon Dioxide 28 mmol/L (22-29) 07/21/23 08:44 Anion Gap 12.5 (5-19) 07/21/23 08:44 BUN 9 mg/dL (8-23) 07/21/23 08:44 Creatinine 0.7 mg/dL (0.5-0. 9) 07/21/23 08:44 GFR Calculation 84.8 mL/min (90-1 30) L 07/21/23 08:44 Glucose 144 mg/dL (65-115 ) H 07/21/23 08:44 Estimat Average Gl ucose 94 07/21/23 08:44 Hemoglobin A1c 4.9 % (4.0-6.0) 07/21/23 08:44 Calculated Osmolal ity 289 mOsm/kg (285- 295) 07/21/23 08:44 Calcium 9.2 mg/dL (8.5-10 .5) 07/21/23 08:44 Magnesium 2.0 mg/dL (1.7-2. 3) 07/21/23 08:44 Iron 35 ug/dL (37-145) L 07/19/23 22:46 TIBC 228 mcg/dl 07/19/23 22:46 % Saturation 15.3 % (20-50) L 07/19/23 22:46 Unsat Iron Binding 193 ug/dL (112-34 7) 07/19/23 22:46 Total Bilirubin 0.5 mg/dL (0.15-1 .2) 07/21/23 08:44 AST 22 U/L (0-32) 07/21/23 08:44 ALT 16 U/L (0-33) 07/21/23 08:44 Alkaline Phosphata se 62 U/L (35-105) 07/21/23 08:44 Total Protein 6.8 g/dL (6.6-8.7 ) 07/21/23 08:44 Albumin 4.0 g/dL (3.5-5.2 ) 07/21/23 08:44 Globulin 2.8 g/dL (1.3-4.6 ) 07/21/23 08:44 Triglycerides 64 mg/dL (0-150) 07/21/23 08:44 Cholesterol 188 mg/dL (0-200) 07/21/23 08:44 LDL Cholesterol, C alc 120 mg/dL (50-129 ) 07/21/23 08:44 Total VLDL Cholest jessi 13 mg/dL (0-30) 07/21/23 08:44 HDL Cholesterol 55 mg/dL (60-100) L 07/21/23 08:44 Cholesterol/HDL Ra yung 3.42 mg/dL (0.0-4 .40) 07/21/23 08:44 Vitamin B12 483 pg/mL (232-12 45) 07/19/23 22:46 Folate > 20.0 ng/mL (4.8 -37.3) 07/21/23 08:44 TSH 0.15 uIU/mL (0.27 -4.20) L 07/19/23 22:46 Free T4 1.65 ng/dL (0.82- 1.77) 07/19/23 22:46 Free T3 2.4 PG/ML (2.0-4. 4) 07/19/23 22:46 Vitals: Last Vital Signs Temp 98.0 F 07/26/23 06:00 Pulse 78 07/26/23 06:00 Resp 14 07/26/23 06:00 BP 124/81 07/26/23 06:00 Pulse Ox 98 07/26/23 06:00 O2 Del Method Room Air 07/26/23 06:00 Discharge Plan Discharge Patient Disposition: Home Condition: Stable Prescriptions: New paliperidone 9 mg Tablet Extended Release 24hr 9 mg PO DAILY 30 Days Qty: 30 1RF Invega 9 mg tablet extended release 24hr 9 mg PO DAILY Qty: 14 0RF Continued levothyroxine 88 mcg Tablet 88 mcg PO DAILY gabapentin 300 mg Capsule 300 mg PO TID Discharge Orders: Discharge Order (Routine); Ordered 07/26/23 Ordered By: Abdoulaye Boyce Referrals: [facility] [Other] (Open access walk in status from Tuesday through Tuesday 8:00 am to 3:00 pm. ) [facility] [Other] - 08/09/23 4:00 pm (Appointment with Dr. Matthias Colon) [facility]- Elizabeth Kat MD [Other] - 09/15/23 2:00 pm (Establish care with Elizabeth Kat on 09/15/23 @ 2:00 pm. ) Discharge Diet: Usual diet Discharge Activity: Resume usual activity Patient Instructions: Paliperidone (By mouth) (Invega), Hypokalemia (DC), Hypothyroidism (DC), Psychotic Disorder (DC), Opioid Safety Discharge Attestations NPU Time Spent in Discharge Care*: less than 30 min Coding Level of Care Code Acute Code for [facility] Fwd Diagnoses Psychosis F29 Camille F30.9
[2023-07-26 13:42] VITALS: BP 124/81; PULSE 78; RESP 14; TEMP 36.7; O2SAT 98
--- NOTE | 2023-07-26 15:21 | PC.NURSE ---
refused scheduled Gabapentin
== END 2023-07-26 15:43 | disposition home or self-care (01) | DRG 885 ==
PROVIDERS: Student in an Organized Health Care Education/Training Program; Admitting Provider Psychiatry & Neurology Psychiatry; PCP Family Medicine; Visit Provider Psychiatry & Neurology Psychiatry
DX: F29 Unspecified psychosis not due to a substance or known physiological condition (principal); F30.9 Manic episode, unspecified; E03.9 Hypothyroidism, unspecified; E87.6 Hypokalemia; Z91.51 Personal history of suicidal behavior
CPT/HCPCS: 36415; 80053; 80061; 82607; 82746; 83036; 83540; 83550; 83735; 84439; 84443; 84481; 85025; 96372; 97150; 97165; J1200; J1630; J2060